=== PATIENT | female | born 2000 | race Caucasian/White ===

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

== ENCOUNTER 2019-02-13 01:16 | Emergency (ER) | payer BC ==
[2019-02-13] MEDS ORDERED: Dexamethasone TAB* 4 MG PO ONE (01:34)
[2019-02-13] MEDS ORDERED: LORazepam TAB(*) 1 MG PO ONE (01:34)
[2019-02-13] MEDS ORDERED: Albuterol 2.5 MG/3 ML NEB.SOL* (0.083%) INH ONE (01:35)
[2019-02-13 02:24] LABS: Rapid Strep Molecular Negative (Negative)
--- NOTE | 2019-02-13 02:26 | ED ---
Respiratory - HPI Summary HPI Summary: 18-year-old female presents with sudden onset of shortness of breath today. She states that her throat feels very tight. Denies any new soaps or products. denies any history of allergic reactions like this before. She denies any chest pain. No difficulty swallowing. No drooling. States she was exposed to someone with strep. She admits to burning sensation in her throat. No fevers. No sinus congestion. No history of asthma. Is nonsmoker. No recent travel. No pain or swelling in her calf muscles. - History of Current Complaint Chief Complaint: EDRespiratoryDistress Stated Complaint: SOB PER PT Time Seen by Provider: 02/13/19 01:29 Pain Intensity: 8 Sputum Amount: None - Allergy/Home Medications Allergies/Adverse Reactions: Allergies Allergy/AdvReac Type Severity Reaction Status Date / Time morphine Allergy Swelling Verified 02/13/19 01:29 PMH/Surg Hx/FS Hx/Imm Hx Cardiovascular History: Denies: Hx Congestive Heart Failure, Hx Hypertension, Hx Pacemaker/ICD, Other Cardiovascular Problems/Disorders Respiratory History: Denies: Hx Asthma, Hx Chronic Obstructive Pulmonary Disease (COPD), Other Respiratory Problems/Disorders GI History: Denies: Hx Irritable Bowel Infectious Disease History: No Infectious Disease History: Denies: Traveled Outside the [place] in Last 30 Days - Family History Known Family History: Negative: Cardiac Disease, Hypertension, Diabetes - Social History Alcohol Use: None Substance Use Type: Reports: None Smoking Status (MU): Never Smoked Tobacco Have You Smoked in the Last Year: No Review of Systems Negative: Fever Negative: Chest Pain Positive: Shortness Of Breath. Negative: Cough All Other Systems Reviewed And Are Negative: Yes Physical Exam Triage Information Reviewed: Yes Vital Signs On Initial Exam: Initial Vitals Temp Pulse Resp BP Pulse Ox 98.1 F 102 22 138/108 100 02/13/19 01:17 02/13/19 01:17 02/13/19 01:17 02/13/19 01:17 02/13/19 01:17 Vital Signs Reviewed: Yes Appearance: Positive: Well-Appearing Skin: Positive: Warm, Dry Head/Face: Positive: Normal Head/Face Inspection Eyes: Positive: Normal, EOMI, JUANITA, Conjunctiva Clear ENT: Positive: Pharynx normal, TMs normal Neck: Positive: Supple, Nontender, No Lymphadenopathy Respiratory/Lung Sounds: Positive: Breath Sounds Present, Stridor Cardiovascular: Positive: Normal, RRR Abdomen Description: Positive: Nontender, Soft Bowel Sounds: Positive: Present Musculoskeletal: Positive: Normal Neurological: Positive: Normal Psychiatric: Positive: Normal Diagnostics - Vital Signs Vital Signs Temp Pulse Resp BP Pulse Ox 02/13/19 02:12 17 02/13/19 01:47 106 20 100 02/13/19 01:17 98.1 F 102 22 138/108 100 - Laboratory Lab Statement: Any lab studies that have been ordered have been reviewed, and results considered in the medical decision making process. - Radiology neck Radiology Interpretation Completed By: ED Physician Summary of Radiographic Findings: normal chest Radiology Interpretation Completed By: ED Physician Summary of Radiographic Findings: nad Re-Evaluation - Re-Evaluation First Eval Re-Evaluation Time: 02:33 Change: Improved Comment: standing outside room Disposition - Course Course Of Treatment: 18-year-old female presents with sudden onset of shortness of breath today. She states that her throat feels very tight. Denies any new soaps or products. denies any history of allergic reactions like this before. She denies any chest pain. No difficulty swallowing. No drooling. States she was exposed to someone with strep. She admits to burning sensation in her throat. No fevers. No sinus congestion. No history of asthma. Is nonsmoker. No recent travel. No pain or swelling in her calf muscles. On exam patient is hyperventilating and making a stridor-like noise. Pharynx normal. Patient is talking in short sentences but when distracted patient able to talk in complete sentences. Gave breathing treatment and improved. chest xray normal. xray neck normal. when outside room patient talks normal but when walk in room patient changes voice. will give inhaler. will place on course of steriods. vitals stable. managing secretions so do not suspect epiglottis. strept neg. patient understand and agrees with plan. - Differential Dx - Cardiopulmonary Differential Diagnoses - Cardiopulmonary: Laryngitis, Lower Resp Infection, Other - epiglottis - Diagnoses Provider Diagnoses: Sore throat, Shortness of breath Discharge - Sign-Out/Discharge Documenting (check all that apply): Patient Departure Patient Received Moderate/Deep Sedation with Procedure: No - Discharge Plan Condition: Good Disposition: HOME Prescriptions: Dexamethasone TAB* [Decadron TAB*] 4 mg PO DAILY #4 tab Patient Education Materials: Shortness of Breath (ED) Referrals: Chris Garcia MD [Primary Care Provider] - Additional Instructions: Use inhaler up to two puffs every 6 hours for cough and wheezing Take steroid once a day for 4 more days starting tomorrow Take Tylenol or ibuprofen for pain every 6 hours follow up with primary within 5 days Return to ED if develop any new or worsening symptoms - Billing Disposition and Condition Condition: GOOD Disposition: Home
[2019-02-13] MEDS ORDERED: A lbuterol Hfa (PREPAK) 1 MDI - ED TAKE HOME DISPENSING ONLY INHH ONE (02:32)
[2019-02-13] MEDS ORDERED: Albuterol HFA INHALER* 8 gm MDI INH ONE (02:57)
[2019-02-13 03:02] VITALS: BP 114/67
== END 2019-02-13 03:00 | disposition home or self-care (01) ==
LOC: ED 01:16
DX: R06.02 Shortness of breath (principal); J02.9 Acute pharyngitis, unspecified; Z88.5 Allergy status to narcotic agent
CPT/HCPCS: 70360; 71046; 87651; 99284; A9270-GY; J8540